=== PATIENT | male | born 1945 | race Caucasian/White ===

== ENCOUNTER 2017-09-04 14:35 | Day surgery (SDC) | payer MEDICARE ==
[~2017-09-04] VITALS: Ht 177.8 cm; Wt 109.9 kg
[~2017-09-04 14:35] MED LIST: ALBU90OI6; FLONASE ALLERG9.9 ML; LISI20; Pentasa500 MG; QNASL8.7 GM; Simvastatin20 MG
== END 2017-09-04 17:27 | disposition home or self-care (01) ==
LOC: ORSCSDS 14:35
PROVIDERS: Orthopaedic Surgery
PROC: 01N50ZZ Release Median Nerve, Open Approach (ICD-10-PCS; principal; 2017-09-04 16:00)
DX: G56.02 Carpal tunnel syndrome, left upper limb (principal); I10 Essential (primary) hypertension; E78.5 Hyperlipidemia, unspecified; J45.909 Unspecified asthma, uncomplicated; Z79.899 Other long term (current) drug therapy; Z53.39 Other specified procedure converted to open procedure
CPT/HCPCS: J0171; J0690; J2250; J3010

== ENCOUNTER → 2020-12-21 | Outpatient (CLI) | payer MEDICARE | END | disposition home or self-care (01) | LOC: LAB 15:45 → LAB SHORT 15:45 | DX: L82.1 Other seborrheic keratosis (principal) | CPT/HCPCS: 88305 ==

== ENCOUNTER 2021-09-12 13:54 | Day surgery (SDC) | payer MEDICARE, OTHER ==
[~2021-09-12] VITALS: Ht 177.8 cm; Wt 110.8 kg
== END 2021-09-12 16:27 | disposition home or self-care (01) ==
LOC: ORSCSDS 13:54
PROVIDERS: Orthopaedic Surgery
PROC: 3E0R33Z Introduction of Anti-inflammatory into Spinal Canal, Percutaneous Approach (ICD-10-PCS; principal; 2021-09-12 15:30)
DX: M51.16 Intervertebral disc disorders with radiculopathy, lumbar region (principal); M48.062 Spinal stenosis, lumbar region with neurogenic claudication; J45.909 Unspecified asthma, uncomplicated; E78.5 Hyperlipidemia, unspecified; I10 Essential (primary) hypertension; E66.9 Obesity, unspecified; Z68.36 Body mass index [BMI] 36.0-36.9, adult; Z79.899 Other long term (current) drug therapy
CPT/HCPCS: J1040; J2001

== ENCOUNTER 2022-10-14 05:48 | Day surgery (SDC) | payer MEDICARE, OTHER ==
[~2022-10-14] VITALS: Ht 177.8 cm; Wt 108.7 kg
[~2022-10-14 05:48] MED LIST changes: -ALBU90OI6; +ALBU90OI6 INH; -FLONASE ALLERG9.9 ML; +Flonase 0.05% N16 GM; -LISI20; +LISI20 PO; +MESA250ER PO; -Pentasa500 MG; -Simvastatin20 MG; +Simvastatin20 MG PO
--- NOTE | 2022-10-14 07:19 | NUR ---
History, Chart, Medications and Allergies reviewed before start of procedure. Lungs clear T/O to Auscultation. Patient confirms NPO status and agrees with scheduled surgery. Pre-Op teaching done. Pt verbalizes understanding. Patient reports completing Chlorhexadine shower X2 prior to admission to hospital.
--- NOTE | 2022-10-14 11:25 | NUR ---
PATIENT ARRIVED TO ROOM VIA BED. PRENIO DRESSING TO L HIP, C/D/I. PATIENT HAS SENSATION TO KNEES, NONE BELOW AT THIS TIME. ABLE TO WIGGLE TOES. DENIES PAIN. VSS ON RA, LUNGS CLEAR. POLAR PACK AND SCD'S IN [place]CE. ORIENTED TO ROOM & CALL LIGHT, IN REACH.
--- NOTE | 2022-10-14 18:09 | NUR ---
SHIFT SUMMARY NO ACUTE CHANGES SINCE ARRIVAL TO UNIT. VSS ON RA. PATIENT EATING, DRINKING, & VOIDING WELL. PAIN MANAGED WELL PER EMAR. PRENIO DRESSING TO LEFT HIP, C/D/I. POLAR PACK IN PLACE. PATIENT UP TO CHAIR W/ 2 ASSIST, FWW & GB. CALLS APPROPRIATELY, IN REACH. WILL REPORT TO ONCOMING RN AT 1900.
[2022-10-15 04:23] LABS: BASOPHILS ABSOLUTE AUTO 0.01 K/mm3 (0.00-0.23); BASOPHILS PERCENT AUTO 0 % (0-2); EOSINOPHILS PERCENT AUTO 0 % (0-6); Hematocrit 30.2 % (37.0-53.0); Hemoglobin 10.4 g/dL (13.5-17.5); IMMATURE GRAN ABSOLUTE AUTO 0.05 K/mm3 (0.00-0.10); IMMATURE GRAN PERCENT AUTO 0 % (0-1); LYMPHOCYTES ABSOLUTE AUTO 0.83 K/mm3 (0.84-5.20); LYMPHOCYTES PERCENT AUTO 7 % (21-46); MONOCYTES ABSOLUTE AUTO 0.84 K/mm3 (0.16-1.47); MONOCYTES PERCENT AUTO 7 % (4-13); Mean Corpuscular HGB 32.4 pg (26.0-34.0); Mean Corpuscular HGB Conc 34.4 g/dL (31.5-36.5); Mean Corpuscular Volume 94 fL (80-100); Mean Platelet Volume 10.1 fL (9.1-12.4); NEUTROPHILS ABSOLUTE AUTO 10.34 K/mm3 (1.96-9.15); NEUTROPHILS PERCENT AUTO 86 % (41-73); Platelet Count 195 K/mm3 (150-400); RDW Coefficient Variation 12.2 % (11.7-14.2); RDW Standard Deviation 42.4 fL (35.1-46.3); Red Blood Cell Count 3.21 M/mm3 (4.30-5.90); White Blood Cell Count 12.07 K/mm3 (4.00-11.30)
--- NOTE | 2022-10-15 04:52 | NUR ---
POD1 LEFT FARNAZ. SENSATION AND CIRCULATION REMAINS INTACT IN LLE. PRINEO DRESSING IS C/D/I. VSS. PT SLEPT ON AND OFF T/O THE NIGHT. AMBULATED T/O ROOM AND TO THE BATHROOM ONCE. SPONTANEOUSLY VOIDING INTO URINAL. TOLLERATING PO INTAKE W/O N/V. MEDICATED FOR PAIN WITH PRN AND SCHEDULED, CRYO REMAINED ON T/O THE NIGHT. NO ACUTE EVENTS NOTED. PLAN FOR PT TO WORK WITH PT AND D/C HOME TODAY. THE PATIENT IS CURRENTLY RESTING, IN NO DISTRESS, CALL LIGHT IN REACH
[2022-10-15 07:17] LABS: Bun/Creatinine Ratio 22.5 (12.0-20.0); Calcium, Blood 8.5 mg/dL (8.5-10.1); Creatinine, Blood 0.85 mg/dL (0.60-1.20); Magnesium, Blood 2.3 mg/dL (1.6-2.4)
[2022-10-15] MEDS ORDERED: ACET500 PO (08:03)
[2022-10-15] MEDS ORDERED: ASPI81CH PO (08:03)
[2022-10-15] MEDS ORDERED: OXAYDO5 M1 PO (08:04)
--- NOTE | 2022-10-15 10:51 | NUR ---
DISCHARGE PT HAS CLEARED THERAPY. PAIN WELL CONTROLLED PER EMAR. PRENIO DRESSING IN PLACE, C/D/I. EATING, DRINKING, & VOIDING WELL. DISCUSSED DISCHARGE INSTRUCTIONS WITH PATIENT. DRESSINGS, DISCHARGE INSTRUCTIONS, & POLAR PACK SENT WITH PATIENT. ESCORTED OUT VIA W/C.
== END 2022-10-15 11:24 | disposition home or self-care (01) ==
LOC: ORSCMMR 05:48 → ORD 07:30 → ORSCMMR 07:30 → SURS 11:25 → ORSCMMR 10-15 11:24
PROVIDERS: Orthopaedic Surgery
PROC: 0SRB0JA Replacement of Left Hip Joint with Synthetic Substitute, Uncemented, Open Approach (ICD-10-PCS; principal; 2022-10-14 07:30)
DX: M16.12 Unilateral primary osteoarthritis, left hip (principal); I10 Essential (primary) hypertension; J45.909 Unspecified asthma, uncomplicated; E66.9 Obesity, unspecified; Z68.34 Body mass index [BMI] 34.0-34.9, adult; Z79.899 Other long term (current) drug therapy
CPT/HCPCS: 36415; 72170; 80048; 83735; 85025; 97110; 97116; 97162; 97530; A9270; C1713; C1776; J0171; J0690; J0735; J1100; J1885; J2250; J2370; J2405; J2704; J2795; J3010; J7120

== ENCOUNTER 2022-10-27 18:46 | Emergency (ER) | payer MEDICARE, OTHER ==
[~2022-10-27] VITALS: Ht 177.8 cm; Wt 108.9 kg
[~2022-10-27 18:46] MED LIST changes: +ACET500 PO; +ASPI81CH PO; +OXAYDO5 M1 PO
[2022-10-27] MEDS ORDERED: Benadryl 50 mg50 MG PO (22:03)
[2022-10-27] MEDS ORDERED: ALLEGRA ALLERG180 MG PO (22:03)
== END 2022-10-27 22:26 | disposition home or self-care (01) ==
LOC: ER 18:46
DX: T78.40XA Allergy, unspecified, initial encounter (principal); X58.XXXA Exposure to other specified factors, initial encounter; Z88.0 Allergy status to penicillin; Z91.09 Other allergy status, other than to drugs and biological substances; Z79.899 Other long term (current) drug therapy; Z79.82 Long term (current) use of aspirin
CPT/HCPCS: J1100; J1200

== ENCOUNTER 2022-10-29 10:27 | Emergency (ER) | payer MEDICARE, OTHER ==
[~2022-10-29] VITALS: Ht 177.8 cm; Wt 108.9 kg
[~2022-10-29 10:27] MED LIST changes: +ALLEGRA ALLERG180 MG PO; +Benadryl 50 mg50 MG PO
[2022-10-29 12:26] LABS: BASOPHILS ABSOLUTE AUTO 0.01 K/mm3 (0.00-0.23); BASOPHILS PERCENT AUTO 0 % (0-2); EOSINOPHILS ABSOLUTE AUTO 0.03 K/mm3 (0.00-0.68); EOSINOPHILS PERCENT AUTO 0 % (0-6); Hematocrit 31.5 % (37.0-53.0); Hemoglobin 10.8 g/dL (13.5-17.5); IMMATURE GRAN ABSOLUTE AUTO 0.04 K/mm3 (0.00-0.10); IMMATURE GRAN PERCENT AUTO 0 % (0-1); LYMPHOCYTES ABSOLUTE AUTO 1.44 K/mm3 (0.84-5.20); LYMPHOCYTES PERCENT AUTO 14 % (21-46); MONOCYTES ABSOLUTE AUTO 0.53 K/mm3 (0.16-1.47); MONOCYTES PERCENT AUTO 5 % (4-13); Mean Corpuscular HGB 32.7 pg (26.0-34.0); Mean Corpuscular HGB Conc 34.3 g/dL (31.5-36.5); Mean Corpuscular Volume 96 fL (80-100); Mean Platelet Volume 9.3 fL (9.1-12.4); NEUTROPHILS ABSOLUTE AUTO 8.49 K/mm3 (1.96-9.15); NEUTROPHILS PERCENT AUTO 81 % (41-73); Platelet Count 438 K/mm3 (150-400); RDW Coefficient Variation 12.7 % (11.7-14.2); RDW Standard Deviation 44.9 fL (35.1-46.3); White Blood Cell Count 10.54 K/mm3 (4.00-11.30)
[2022-10-29 12:48] LABS: Albumin, Blood 3.3 g/dL (3.4-5.0); Albumin/Globulin Ratio 0.8 (0.8-1.8); Bilirubin, Total 0.5 mg/dL (0.1-1.0); Bun/Creatinine Ratio 19.1 (12.0-20.0); Calcium, Blood 8.9 mg/dL (8.5-10.1); Creatinine, Blood 0.73 mg/dL (0.60-1.20); Globulin, Blood 3.9 g/dL (2.2-4.0); Potassium, Blood 3.5 mmol/L (3.5-5.5); Total Protein, Blood 7.2 g/dL (6.4-8.2)
[2022-10-29] MEDS ORDERED: LOSA50 PO (13:41)
== END 2022-10-29 13:57 | disposition home or self-care (01) ==
LOC: ER 10:27
PROVIDERS: Emergency Medicine
DX: T78.3XXA Angioneurotic edema, initial encounter (principal); I10 Essential (primary) hypertension; Z79.899 Other long term (current) drug therapy; Z79.82 Long term (current) use of aspirin; Z88.1 Allergy status to other antibiotic agents; Z91.09 Other allergy status, other than to drugs and biological substances
CPT/HCPCS: 36415; 71045; 80053; 85025; A9270; J1100; J1200

== ENCOUNTER 2023-05-19 08:24 | Day surgery (SDC) | payer MEDICARE, OTHER ==
[~2023-05-19] VITALS: Ht 177.8 cm; Wt 111.2 kg
[2023-05-19] VITALS (17 sets, daily range): BP systolic 119–143; BP diastolic 64–80
[~2023-05-19 08:24] MED LIST changes: +Flovent Diskus50 MCG PO; +LOSA50 PO
--- NOTE | 2023-05-19 09:22 | NUR ---
Patient up to Ambulate independently. Gait steady. History, Chart, Medications and Allergies reviewed before start of procedure. Lungs clear T/O to Auscultation. Patient confirms NPO status and agrees with scheduled surgery. Pre-Op teaching done. Pt verbalizes understanding. GLASSES PLACED IN PACU. BELONGINGS PLACED UNDER BED. FAMILY IN ROOM AT BEDSIDE.
--- NOTE | 2023-05-19 18:22 | NUR ---
SUMMARY NO ACUTE CHANGES SINCE ARRIVING TO UNIT. PT STOOD AT BEDSIDE AND TRANSFERRED TO RECLINER. PAINFUL WITH TRANSFER, MEDICATED PER ORDERS FOR PAIN. TOLERATING DIET. VERIFIED WITH PHARMACY TO GIVE ANCEF WITH HX OF REPORTED POSSIBLE AMPICILLIN ALLERGY. CALL LIGHT IN REACH.
[2023-05-20 02:47] VITALS: BP 119/71
[2023-05-20 04:46] LABS: BASOPHILS ABSOLUTE AUTO 0.03 K/mm3 (0.00-0.23); BASOPHILS PERCENT AUTO 0 % (0-2); EOSINOPHILS ABSOLUTE AUTO 0.12 K/mm3 (0.00-0.68); EOSINOPHILS PERCENT AUTO 2 % (0-6); Hemoglobin 13.2 g/dL (13.5-17.5); IMMATURE GRAN ABSOLUTE AUTO 0.02 K/mm3 (0.00-0.10); IMMATURE GRAN PERCENT AUTO 0 % (0-1); LYMPHOCYTES PERCENT AUTO 16 % (21-46); MONOCYTES ABSOLUTE AUTO 0.79 K/mm3 (0.16-1.47); MONOCYTES PERCENT AUTO 10 % (4-13); Mean Corpuscular HGB 32.6 pg (26.0-34.0); Mean Corpuscular HGB Conc 33.8 g/dL (31.5-36.5); Mean Corpuscular Volume 96 fL (80-100); Mean Platelet Volume 9.5 fL (9.1-12.4); NEUTROPHILS ABSOLUTE AUTO 5.98 K/mm3 (1.96-9.15); NEUTROPHILS PERCENT AUTO 73 % (41-73); Platelet Count 208 K/mm3 (150-400); RDW Coefficient Variation 12.8 % (11.7-14.2); RDW Standard Deviation 45.3 fL (35.1-46.3); Red Blood Cell Count 4.05 M/mm3 (4.30-5.90); White Blood Cell Count 8.24 K/mm3 (4.00-11.30)
[2023-05-20 05:03] LABS: Bun/Creatinine Ratio 16.3 (12.0-20.0); Calcium, Blood 8.4 mg/dL (8.5-10.1); Creatinine, Blood 0.8 mg/dL (0.60-1.20); Magnesium, Blood 2.3 mg/dL (1.6-2.4)
--- NOTE | 2023-05-20 07:25 | NUR ---
SHIFT SUMMARY NOC. PT POD 1 FOR LEFT TOTAL KNEE. PT AQUACEL IS CLEAN, DRY, AND INTACT. PT AMBULATING TO THE BATHROOM, IS VOIDING, AND TOLERATING PO INTAKE. PT DENIED CP OR SOB. PT MEDICATED FOR PAIN PER EMAR ORDERS WITH RELIEF. PT RESTED WITH EYES CLOSED AND CALL LIGHT IN REACH.
[2023-05-20 07:34] VITALS: BP 124/72
[2023-05-20] MEDS ORDERED: ASPI81CH PO (09:07)
[2023-05-20] MEDS ORDERED: OXYC5 PO (09:08)
[2023-05-20 10:06] VITALS: BP 120/68
--- NOTE | 2023-05-20 10:06 | NUR ---
DISCHARGING PT CLEARED THERAPY. REVIEWED DC INSTRUCTIONS W/PT, VERBALIZED UNDERSTANDING. PROVIDED DRESSING CHANGES. FAMILY BEDSIDE.
--- NOTE | 2023-05-20 10:13 | NUR ---
discharged LEFT UNIT IN WC W/POSSESSIONS, POLAR PACK AND DC INSTRUCTIONS IN HAND, ACCOMPANIED BY FAMILY.
== END 2023-05-20 10:15 | disposition home or self-care (01) ==
LOC: ORSCMMR 08:24 → ORD 10:15 → ORSCMMR 10:30 → ORD 10:30 → SURS 14:33 → ORSCMMR 05-20 10:15
PROVIDERS: Orthopaedic Surgery
PROC: 0SRD0JA Replacement of Left Knee Joint with Synthetic Substitute, Uncemented, Open Approach (ICD-10-PCS; principal; 2023-05-19 10:30)
DX: M17.12 Unilateral primary osteoarthritis, left knee (principal); I10 Essential (primary) hypertension; E78.5 Hyperlipidemia, unspecified; Z68.34 Body mass index [BMI] 34.0-34.9, adult; J45.909 Unspecified asthma, uncomplicated; Z79.899 Other long term (current) drug therapy
CPT/HCPCS: 36415; 73560-LT; 80048; 83735; 85025; 94760; 97110; 97116; 97162; A9270; C1713; C1776; J0171; J0690; J0735; J1885; J2250; J2704; J2795; J3010; J7120